=== PATIENT | female | born 1970 | race Caucasian/White ===

== ENCOUNTER → 2016-11-26 | Outpatient (CLI) | payer MEDICAID ==
--- OUTSIDE RECORDS SUMMARY | 2016-11-26 12:51 | XMS REPORT ---
Author KINA Arroyo [facility] eClinicalWorks Address Unknown Phone Unavailable Care Team Providers Care Director Of Procurement Name Role Phone KINA TREVIÑO CP Unavailable Allergies, Adverse Reactions, Alerts Substance Reaction Event Type N.K.D.A. Info Not Available Non Drug Allergy Problems Problem Type Condition Code Onset Dates Condition Status Assessment Didi albicans infection B37.9 Active Problem Anxiety disorder, unspecified F41.9 Active Assessment Well woman exam with routine gynecological exam Z01.419 Active Problem Depression F32.9 Active Problem Insomnia G47.00 Active Problem Irritable bowel syndrome with both constipation and diarrhea K58.0 Active Problem Cannabis dependence, uncomplicated F12.20 Active Problem Depressive disorder, not elsewhere classified F32.9 Active Problem GERD (gastroesophageal reflux disease) K21.9 Active Problem Substance abuse F19.10 Active Medications Medication Code System Code Instructions Start Date End Date Status Dosage Clonidine HCl [facility] [address]-49 0.1 MG Orally twice a day prn Jun 12, [address] [facility] [address] 10 MG Orally Once a day 1 tablet at bedtime as needed with food Diflucan [facility] [address]-24 100 MG Orally Three times a Week Aug 09, 2016 Aug 19, [address] [facility] [address]-62 220 MG Orally every 12 hrs 1 tablet as needed Htsxid-Skxmepekv-GRK-C-Hyal NDC 0 Orally not defined Vitamin B [address] [facility] [address] 250 MCG Orally not defined Procedures Procedure Coding System Code Date No Charge CPT-4 12846 Aug 09, 2016 [facility] NOBLL Aug 09, 2016 SPECIMEN HANDLING CPT-4 41563 Aug 09, 2016 Preventive Care Est Pt. Age 40-64 CPT-4 14936 Aug 09, 2016 PIERRE VAG, DNA, DIR PROBE CPT-4 50767 Aug 09, 2016 Vital Signs Date/Time: Aug 09, 2016 Cardiac Monitoring Heart Rate 68 bpm Weight 175.3 lbs Height 62 in BMI 32.06 Index Blood Pressure Diastolic 93 mmHg Blood Pressure Systolic 147 mmHg Results Name Result Date Reference Range Unit Abnormality Flag TRICHOMONAS (IN HOUSE) ----TRICHOMONAS negative [id number] ----Control + [id number] ----Lot # [id number] ----Exp date [id number] BACTERIAL VAGINOSIS (IN HOUSE) ----Exp date 20160809 ----Control + [id number] ----Lot # [id number] ----RESULTS negative [id number] Summary Purpose eClinicalWorks Submission
--- NOTE | 2016-11-26 15:10 | Diagnostic Imaging Report ---
INDICATION: Right-sided pelvic pain and cramping, no menstrual cycle since April 2016. COMPARISON: 12/22/2013. DISCUSSION: Transabdominal and transvaginal sonographic evaluation of the pelvis was performed. The uterus is normal in echotexture and size measuring 7.0 x 4.3 x 3.9 cm. 1.3 cm solid-appearing nodule within the uterine fundus is statistically consistent with a small fibroid, which is located entirely within the myometrium. Normal endometrial thickness measuring 0.4 cm. The right ovary was not visualized. The left ovary is mildly enlarged measuring 4.5 x 3.5 x 3.1 cm. The left ovary contains a cyst within a cyst appearance which likely represents a functional follicle though is indeterminate. Cystic structure measures 3.4 cm. Recommend 6-12 week sonographic followup. Otherwise, no abnormal adnexal mass or fluid. IMPRESSION: 1. Nonvisualization of the right ovary. 2. Simple-appearing cystic structure within the left ovary with a thin internal septation may represent a cyst within a cyst, though recommend short-term sonographic followup to document resolution and/or stability. 3. Small uterine fibroid. Dictated by: Dictated on workstation # [id number]
== END ==
LOC: RAD 12:48
PROVIDERS: ATTEND Nurse Practitioner Adult Health
DX: R10.2 Pelvic and perineal pain (principal)
CPT/HCPCS: 76830; 76856

== ENCOUNTER 2017-02-18 20:30 | Outpatient (CLI) | payer MEDICAID | END 2017-02-19 06:40 | disposition home or self-care (01) | LOC: SLEEP 20:30 | PROVIDERS: ATTEND Internal Medicine Hematology & Oncology | DX: G47.36 Sleep related hypoventilation in conditions classified elsewhere (principal); R06.83 Snoring | CPT/HCPCS: 95810 ==

== ENCOUNTER 2017-03-04 13:00 | Outpatient (RCR) | payer MEDICAID ==
[2016-12-18 16:05] LABS: BASOPHILS % (AUTO) 0 % (0-10); EOSINOPHILS % (AUTO) 0 % (0-10); LYMPHOCYTES # (AUTO) 1.8 X 10^3 (1.0-4.0); LYMPHOCYTES % (AUTO) 17 % (12-44); MEAN CORPUSCULAR HEMOGLOBIN 31 PG (25-34); MEAN CORPUSCULAR HGB CONC 34 G/DL (32-36); MEAN CORPUSCULAR VOLUME 89 FL (80-99); MEAN PLATELET VOLUME 10.7 FL (7.4-10.4); MONOCYTES # (AUTO) 0.7 X 10^3 (0.0-1.0); MONOCYTES % (AUTO) 6 % (0-12); NEUTROPHILS # (AUTO) 8.2 X 10^3 (1.8-7.8); NEUTROPHILS % (AUTO) 76 % (42-75); PLATELET COUNT 183 10^3/uL (130-400); RED BLOOD COUNT 5.59 10^6/uL (4.35-5.85); RETICULOCYTE % 1.58 % (0.50-2.40); WHITE BLOOD COUNT 10.7 10^3/uL (4.3-11.0)
[2016-12-18 16:31] LABS: ALANINE AMINOTRANSFERASE 44 U/L (0-55); ALBUMIN 4.1 G/DL (3.2-4.5); ANION GAP 12 MMOL/L (5-14); ASPARTATE AMINO TRANSFERASE 53 U/L (5-34); BILIRUBIN,TOTAL 0.7 MG/DL (0.1-1.0); BLOOD UREA NITROGEN 11 MG/DL (7-18); BUN/CREATININE RATIO 14; CARBON DIOXIDE 19 MMOL/L (21-32); CHLORIDE 107 MMOL/L (98-107); CREATININE SERUM 0.81 MG/DL (0.60-1.30); GFR ESTIMATED > 60; GLUCOSE 102 MG/DL (70-105); LACTATE DEHYDROGENASE 167 U/L (125-220); POTASSIUM 4.2 MMOL/L (3.6-5.0); SODIUM 138 MMOL/L (135-145); TOTAL PROTEIN 7.5 G/DL (6.4-8.2)
[2016-12-18 17:02] LABS: %SAT TOTAL IRON BINDING CAPIC 10 % (15-50); TIBC 307 ug/dL (280-380)
[2016-12-19 07:14] LABS: UIBC 275 ug/dL (55-450)
[2016-12-21 14:14] LABS: JAK2 MUTATION Not Detected
[2017-01-22 14:02] LABS: BASOPHILS % (AUTO) 0 % (0-10); EOSINOPHILS # (AUTO) 0.1 10^3/uL (0.0-0.3); EOSINOPHILS % (AUTO) 1 % (0-10); LYMPHOCYTES # (AUTO) 3.2 X 10^3 (1.0-4.0); LYMPHOCYTES % (AUTO) 29 % (12-44); MEAN CORPUSCULAR HEMOGLOBIN 31 PG (25-34); MEAN CORPUSCULAR HGB CONC 34 G/DL (32-36); MEAN CORPUSCULAR VOLUME 91 FL (80-99); MEAN PLATELET VOLUME 10.7 FL (7.4-10.4); MONOCYTES # (AUTO) 0.6 X 10^3 (0.0-1.0); MONOCYTES % (AUTO) 5 % (0-12); NEUTROPHILS # (AUTO) 7.3 X 10^3 (1.8-7.8); NEUTROPHILS % (AUTO) 65 % (42-75); PLATELET COUNT 179 10^3/uL (130-400); RED BLOOD COUNT 5.23 10^6/uL (4.35-5.85); RED CELL DISTRIBUTION WIDTH 14.4 % (10.0-14.5); WHITE BLOOD COUNT 11.1 10^3/uL (4.3-11.0)
[2017-03-04 14:05] LABS: BASOPHILS % (AUTO) 0 % (0-10); EOSINOPHILS # (AUTO) 0.1 10^3/uL (0.0-0.3); EOSINOPHILS % (AUTO) 1 % (0-10); LYMPHOCYTES # (AUTO) 2.8 X 10^3 (1.0-4.0); LYMPHOCYTES % (AUTO) 23 % (12-44); MEAN CORPUSCULAR HEMOGLOBIN 31 PG (25-34); MEAN CORPUSCULAR HGB CONC 34 G/DL (32-36); MEAN CORPUSCULAR VOLUME 92 FL (80-99); MEAN PLATELET VOLUME 11.7 FL (7.4-10.4); MONOCYTES # (AUTO) 0.6 X 10^3 (0.0-1.0); MONOCYTES % (AUTO) 5 % (0-12); NEUTROPHILS # (AUTO) 8.5 X 10^3 (1.8-7.8); NEUTROPHILS % (AUTO) 71 % (42-75); PLATELET COUNT 161 10^3/uL (130-400); RED BLOOD COUNT 5.18 10^6/uL (4.35-5.85); RED CELL DISTRIBUTION WIDTH 13.7 % (10.0-14.5); WHITE BLOOD COUNT 12.1 10^3/uL (4.3-11.0)
[2017-03-04 14:30] LABS: ALANINE AMINOTRANSFERASE 18 U/L (0-55); ALBUMIN 3.9 G/DL (3.2-4.5); ANION GAP 8 MMOL/L (5-14); ASPARTATE AMINO TRANSFERASE 20 U/L (5-34); BILIRUBIN,TOTAL 0.4 MG/DL (0.1-1.0); BLOOD UREA NITROGEN 12 MG/DL (7-18); BUN/CREATININE RATIO 15; CALCIUM 8.8 MG/DL (8.5-10.1); CARBON DIOXIDE 23 MMOL/L (21-32); CHLORIDE 107 MMOL/L (98-107); CREATININE SERUM 0.82 MG/DL (0.60-1.30); GFR ESTIMATED > 60; GLUCOSE 89 MG/DL (70-105); POTASSIUM 4.2 MMOL/L (3.6-5.0); SODIUM 138 MMOL/L (135-145); TOTAL PROTEIN 7.1 G/DL (6.4-8.2)
== END 2017-03-18 | disposition home or self-care (01) ==
LOC: ONC 13:00
PROVIDERS: ATTEND Internal Medicine Hematology & Oncology
DX: D75.1 Secondary polycythemia (principal); F32.9 Major depressive disorder, single episode, unspecified; K58.9 Irritable bowel syndrome, unspecified; E66.9 Obesity, unspecified; Z68.35 Body mass index [BMI] 35.0-35.9, adult
CPT/HCPCS: 36415; 80053; 81270; 82728; 83540; 83615; 85025; 85045; 99213; 99214

== ENCOUNTER 2017-09-27 15:44 | Outpatient (RCR) | payer MEDICAID ==
[2017-09-27 16:04] LABS: BASOPHILS # (AUTO) 0.1 10^3/uL (0.0-0.1); BASOPHILS % (AUTO) 0 % (0-10); EOSINOPHILS # (AUTO) 0.1 10^3/uL (0.0-0.3); EOSINOPHILS % (AUTO) 0 % (0-10); HEMATOCRIT 50 % (35-52); LYMPHOCYTES # (AUTO) 3.3 X 10^3 (1.0-4.0); LYMPHOCYTES % (AUTO) 23 % (12-44); MEAN CORPUSCULAR HEMOGLOBIN 31 PG (25-34); MEAN CORPUSCULAR HGB CONC 34 G/DL (32-36); MEAN CORPUSCULAR VOLUME 91 FL (80-99); MEAN PLATELET VOLUME 10.8 FL (7.4-10.4); MONOCYTES # (AUTO) 0.4 X 10^3 (0.0-1.0); MONOCYTES % (AUTO) 3 % (0-12); NEUTROPHILS # (AUTO) 10.2 X 10^3 (1.8-7.8); NEUTROPHILS % (AUTO) 73 % (42-75); PLATELET COUNT 169 10^3/uL (130-400); RED BLOOD COUNT 5.43 10^6/uL (4.35-5.85); RED CELL DISTRIBUTION WIDTH 13.9 % (10.0-14.5)
[2017-09-27 16:25] LABS: ALANINE AMINOTRANSFERASE 20 U/L (0-55); ALBUMIN 3.9 GM/DL (3.2-4.5); ALKALINE PHOSPHATASE 158 U/L (40-136); BILIRUBIN,TOTAL 0.3 MG/DL (0.1-1.0); BUN/CREATININE RATIO 14; CARBON DIOXIDE 23 MMOL/L (21-32); CHLORIDE 106 MMOL/L (98-107); CREATININE SERUM 0.94 MG/DL (0.60-1.30); GFR ESTIMATED > 60; GLUCOSE 123 MG/DL (70-105); POTASSIUM 4.3 MMOL/L (3.6-5.0); SODIUM 137 MMOL/L (135-145); TOTAL PROTEIN 7.9 GM/DL (6.4-8.2)
== END 2017-12-26 | disposition home or self-care (01) ==
LOC: ONC 15:44
PROVIDERS: ATTEND Internal Medicine Hematology & Oncology
DX: D75.1 Secondary polycythemia (principal); F32.9 Major depressive disorder, single episode, unspecified; K58.9 Irritable bowel syndrome, unspecified; E66.9 Obesity, unspecified; Z68.35 Body mass index [BMI] 35.0-35.9, adult
CPT/HCPCS: 36415; 80053; 85025; 99213

== ENCOUNTER → 2017-10-23 | Outpatient (CLI) | payer MEDICAID ==
--- NOTE | 2017-10-24 14:24 | Diagnostic Imaging Report ---
Bilateral screening mammogram 2D views with tomosynthesis. The current study was also evaluated with a Computer Aided Detection (CAD) system. INDICATION: Screening. No current complaints stated on the questionnaire. COMPARISON: 12/22/2013. FINDINGS: The breasts are composed of scattered fibroglandular densities. There are scattered benign-appearing calcifications. Circumscribed stable nodules are seen posteriorly and laterally in the breasts likely related to intramammary lymph nodes. Allowing for technique and positional differences, no suspicious change is seen. IMPRESSION: No significant change. ACR BI-RADS Category 2: Benign findings. Result letter will be mailed to the patient. Note: At least 10% of breast cancer is not imaged by mammography. Dictated by: Dictated on workstation # [id number]
== END ==
LOC: RAD 08:39
PROVIDERS: ATTEND Nurse Practitioner Family
DX: Z12.31 Encounter for screening mammogram for malignant neoplasm of breast (principal)
CPT/HCPCS: 77067

== ENCOUNTER 2018-09-19 12:15 | Outpatient (CLI) | payer MEDICAID ==
[~2018-09-19] VITALS: Ht 157.5 cm; Wt 108.9 kg
[2018-09-19] MEDS ORDERED: IBUP100T3 PO (12:22)
[2018-09-19] MEDS ORDERED: MELA1TAB20 PO (12:22)
[2018-09-19] MEDS ORDERED: CLON0.1T PO (12:22)
[2018-09-19] MEDS ORDERED: OMEP20TA7 PO (12:22)
== END 2018-09-19 12:37 | disposition home or self-care (01) ==
LOC: PREOP 12:15
PROVIDERS: ATTEND Surgery
DX: Z01.818 Encounter for other preprocedural examination (principal)

== ENCOUNTER 2018-09-23 12:33 | Day surgery (SDC) | payer MEDICAID ==
[~2018-09-23] VITALS: Ht 157.5 cm; Wt 108.9 kg
[~2018-09-23 12:33] MED LIST: CLON0.1T PO; IBUP100T3 PO; MELA1TAB20 PO; OMEP20TA7 PO
[2018-09-23] MEDS ORDERED: LACTATED RINGERS 1,000 ML IV ONE (12:38)
[2018-09-23] MEDS ORDERED: LACTATED RINGERS 1,000 ML IV STA (12:57)
[2018-09-23 13:00] VITALS: BP 169/98
[2018-09-23] MEDS ORDERED: HURRICAINE EXT TUBE (BENZOCAINE) XX PRN (13:00)
[2018-09-23] MEDS ORDERED: PROPOFOL INJECTION 50 ML IV ONE (13:07)
--- NOTE | 2018-09-23 13:11 | Progress Note-Pre Operative ---
Pre-Operative Progress Note H&P Reviewed The H&P was reviewed, patient examined and no changes noted. Date Seen by Provider: Sep 23, 2018 Time Seen by Provider: 13:10 Date H&P Reviewed: Sep 23, 2018 Time H&P Reviewed: 13:10 Pre-Operative Diagnosis: hematemesis, cyclic vomiting symdrome, gerd, epigastric abdominal pain ISELA LEWIS DO Sep 23, 2018 13:11
[2018-09-23] MEDS ORDERED: PANT40TA2 PO (13:52)
--- NOTE | 2018-09-23 13:54 | Discharge Inst-Simple/Standard ---
Discharge Inst-Standard Discharge Medications New, Converted or Re-Newed RX: Transmitted to Pharmacy Patient Instructions/Follow Up Plan of Care/Instructions/FU: Isabelle- [address] Card (ENT) right false cord lesion. Please schedule appointment. Activity as Tolerated: Yes Discharge Diet: Regular Diet ISELA LEWIS DO Sep 23, 2018 13:54
--- NOTE | 2018-09-23 13:56 | Progress Note-Post Operative ---
Post-Operative Progess Note Surgeon (s)/Pipe Coverer And Insulator (s) Surgeon ISELA LEWIS DO Pipe Coverer And Insulator: na Pre-Operative Diagnosis hematemesis, cyclic vomiting symdrome, gerd, epigastric abdominal pain Post-Operative Diagnosis slight gastritis, hiatal hernia, reflux esophagitis, right false cord lesion Procedure & Operative Findings Date of Procedure 09/23/18 Procedure Performed/Findings egd c biopsies Anesthesia Type per lapidarist Estimated Blood Loss Estimated blood loss (mL): scant Specimens/Packing Specimens Removed antrum, ge ISELA LEWIS DO Sep 23, 2018 13:56
[2018-09-23 14:00] VITALS: BP 112/75
--- NOTE | 2018-09-23 14:05 | Anesthesia-General Post-Op ---
MAC Patient Condition Mental Status/LOC: Same as Preop Cardiovascular: Satisfactory Nausea/Vomiting: Absent Respiratory: Satisfactory Pain: Controlled Complications: Absent Post Op Complications Complications None Follow Up Care/Instructions Patient Instructions None needed. Anesthesiology Discharge Order Discharge Order Patient is doing well, no complaints, stable vital signs, no apparent adverse anesthesia problems. MARCELLO SOLIS DO Sep 23, 2018 14:05
[2018-09-23 14:30] VITALS: BP 119/68
[2018-09-23 14:40] VITALS: BP 119/68
--- NOTE | 2018-09-23 23:36 | OPERATIVE REPORT ---
DATE OF SERVICE: 09/23/2018 PREOPERATIVE DIAGNOSES: Hematemesis, cyclic vomiting syndrome, GERD, epigastric abdominal pain. POSTOPERATIVE DIAGNOSES: Slight gastritis, hiatal hernia, reflux esophagitis, right false cord lesion. PROCEDURE: EGD with biopsy. SURGEON: Isela Walton DO ANESTHESIA: Per REAL ESTATE CLOSER. ESTIMATED BLOOD LOSS: Scant. COMPLICATIONS: None. INDICATIONS: The patient is a 48-year-old female with hematemesis, cyclic vomiting syndrome, GERD, epigastric abdominal pain. She was explained risks and benefits of procedure and wished to proceed with procedure. Consent was signed in the chart. PROCEDURE: The patient was taken to the endoscopy suite, placed in left lateral recumbent position. Timeout was performed. Scope was inserted in mouth, down the esophagus, stomach and into the duodenum without difficulty. There are no polyps, masses or ulcerations within the duodenum. The scope was slowly retracted back into the stomach where it was further insufflated. Slight gastritis appearance was present. Biopsy of the antrum was obtained. There are no polyps, mass or ulcerations. The scope was retroflexed noting a small hiatal hernia. No other pathology noted. Scope was returned to its normal position, slowly withdrawn to the distal esophagus and GE junction, some significant erythematous changes consistent with reflux esophagitis. Biopsies were obtained. Scope was then slowly retracted back to completely remove, on withdrawal the right false cord had a small lesion on it. Scope was then slowly retracted until completely removed. RECOMMENDATIONS: The patient will stop omeprazole and start Protonix 40 mg daily and follow up in the office in 2 weeks to discuss pathology results. We will also set up appointment for ENT for right false cord lesion. cc: Job ID: [id number] DocumentID: [id number] Dictated Date: 09/23/2018 13:59:01 Needle Valve Operator Date: 09/23/2018 23:36:02 Dictated By: ISELA WALTON DO
== END 2018-09-23 14:41 | disposition home or self-care (01) ==
LOC: ENDO 12:33
PROVIDERS: ATTEND Surgery
DX: K21.0 Gastro-esophageal reflux disease with esophagitis (principal); K44.9 Diaphragmatic hernia without obstruction or gangrene; K29.70 Gastritis, unspecified, without bleeding; J38.3 Other diseases of vocal cords; I10 Essential (primary) hypertension; D75.1 Secondary polycythemia; E66.01 Morbid (severe) obesity due to excess calories; Z68.41 Body mass index [BMI] 40.0-44.9, adult; Z86.19 Personal history of other infectious and parasitic diseases; Z87.891 Personal history of nicotine dependence; Z79.899 Other long term (current) drug therapy

== ENCOUNTER 2018-09-30 14:20 | Outpatient (CLI) | payer MEDICAID ==
[~2018-09-30] VITALS: Ht 157.5 cm; Wt 110.2 kg
[~2018-09-30 14:20] MED LIST changes: +PANT40TA2 PO
[2018-09-30 14:36] VITALS: BP 143/94
[2018-09-30] MEDS ORDERED: PANT40TA3 PO (14:40)
[2018-09-30] MEDS ORDERED: VARE0.5T PO (14:40)
[2018-09-30 15:05] LABS: BASOPHILS # (AUTO) 0.1 10^3/uL (0.0-0.1); BASOPHILS % (AUTO) 0 % (0-10); EOSINOPHILS # (AUTO) 0.1 10^3/uL (0.0-0.3); EOSINOPHILS % (AUTO) 1 % (0-10); HEMATOCRIT 48 % (35-52); HEMOGLOBIN 15.9 G/DL (11.5-16.0); LYMPHOCYTES # (AUTO) 3.1 X 10^3 (1.0-4.0); LYMPHOCYTES % (AUTO) 26 % (12-44); MEAN CORPUSCULAR HEMOGLOBIN 31 PG (25-34); MEAN CORPUSCULAR HGB CONC 33 G/DL (32-36); MEAN CORPUSCULAR VOLUME 92 FL (80-99); MONOCYTES # (AUTO) 0.6 X 10^3 (0.0-1.0); MONOCYTES % (AUTO) 5 % (0-12); NEUTROPHILS # (AUTO) 8.2 X 10^3 (1.8-7.8); NEUTROPHILS % (AUTO) 68 % (42-75); PLATELET COUNT 175 10^3/uL (130-400); RED BLOOD COUNT 5.15 10^6/uL (4.35-5.85); RED CELL DISTRIBUTION WIDTH 14.5 % (10.0-14.5); WHITE BLOOD COUNT 12.1 10^3/uL (4.3-11.0)
[2018-09-30 15:24] LABS: BUN/CREATININE RATIO 17; CALCIUM 9.6 MG/DL (8.5-10.1); CARBON DIOXIDE 22 MMOL/L (21-32); CHLORIDE 108 MMOL/L (98-107); CREATININE SERUM 0.84 MG/DL (0.60-1.30); GFR ESTIMATED > 60; GLUCOSE 131 MG/DL (70-105); POTASSIUM 4.4 MMOL/L (3.6-5.0); SODIUM 140 MMOL/L (135-145)
--- NOTE | 2018-09-30 18:29 | Diagnostic Imaging Report ---
INDICATION: Preop for vocal cord biopsy. TIME OF EXAM: 3:08 p.m. COMPARISON: No prior studies are available for comparison. FINDINGS: The heart size is normal. There is a calcified nodule in the left mid lung suggestive of a granuloma. Otherwise, the lungs are clear. The pulmonary vascularity is normal. No effusion or pneumothorax is seen. IMPRESSION: No acute cardiopulmonary process is detected. Dictated by: Dictated on workstation # [id number]
== END 2018-09-30 15:20 | disposition home or self-care (01) ==
LOC: PREOP 14:20
PROVIDERS: ATTEND Otolaryngology Otolaryngology/Facial Plastic Surgery
DX: Z01.810 Encounter for preprocedural cardiovascular examination (principal); Z01.811 Encounter for preprocedural respiratory examination; Z01.812 Encounter for preprocedural laboratory examination; Z11.2 Encounter for screening for other bacterial diseases; J38.3 Other diseases of vocal cords
CPT/HCPCS: 36415; 71046; 80048; 84703; 85025; 87081; 93005

== ENCOUNTER 2018-10-03 07:21 | Day surgery (SDC) | payer MEDICAID ==
[~2018-10-03] VITALS: Ht 157.5 cm; Wt 110.2 kg
[~2018-10-03 07:21] MED LIST changes: +PANT40TA3 PO; +VARE0.5T PO
[2018-10-03 07:30] VITALS: BP 129/91
[2018-10-03] MEDS ORDERED: LACTATED RINGERS 1,000 ML IV PRN (07:50)
[2018-10-03] MEDS ORDERED: MIDAZOLAM 2 MG/2 ML (VERSED) VIAL IV ONE (08:00)
[2018-10-03] MEDS ORDERED: LIDOCAINE/EPI 1%-1:100,000 (XYLOCAINE) 20ML ONE (08:43)
[2018-10-03] MEDS ORDERED: MIDAZOLAM 2 MG/2 ML (VERSED) VIAL ONE (09:01)
[2018-10-03] MEDS ORDERED: fentaNYL INJECTION 100 MCG/2 ML AMP ONE (09:01)
--- NOTE | 2018-10-03 09:36 | Progress Note-Pre Operative ---
Pre-Operative Progress Note H&P Reviewed The H&P was reviewed, patient examined and no changes noted. Date Seen by Provider: Oct 03, 2018 Time Seen by Provider: :30 Date H&P Reviewed: Oct 03, 2018 Time H&P Reviewed: :30 Pre-Operative Diagnosis: Left Laryngeal Lesion JAIMIE SANCHEZ MD Oct 03, 2018 09:36
[2018-10-03] MEDS ORDERED: morphine INJ 10 MG/ML 1ML (SYR OR VIAL) IVP ONE (10:00)
[2018-10-03] MEDS ORDERED: MEPERIDINE (DEMEROL) INJ 50 MG/ML IVP ONE (10:00)
[2018-10-03] MEDS ORDERED: ONDANSETRON 4 MG/2 ML (SDV) Z0FRAN IVP PRN (10:00)
[2018-10-03] MEDS ORDERED: ONDANSETRON 4 MG/2 ML (SDV) Z0FRAN ONE (10:13)
[2018-10-03] MEDS ORDERED: ROCURONIUM 10 MG/ML 5 ML SYRINGE IV ONE (10:13)
[2018-10-03] MEDS ORDERED: LIDOCAINE PF 2% 5 ML (XYLOCAINE) VIAL ONE (10:13)
[2018-10-03] MEDS ORDERED: SUCCINYLCHOLINE INJ 100 MG/5 ML SYR ONE (10:13)
[2018-10-03] MEDS ORDERED: LIDOCAINE JELLY 2% 6 ML SYRINGE ONE (10:13)
[2018-10-03] MEDS ORDERED: DEXAMETHASONE 10 MG/ML (DECADRON) 1 ML VIAL ONE (10:13)
[2018-10-03] MEDS ORDERED: proPOfol 200 MG/20 ML (DIPRIVAN) VIAL IV ONE (10:13)
[2018-10-03] MEDS ORDERED: SEVOFLURANE (ULTANE) 15 ML INHAL SOLN ONE (10:13)
[2018-10-03] MEDS ORDERED: GLYCOPYRROLATE 0.2 MG/ML (ROBINUL) 2 ML VIAL ONE (10:17)
[2018-10-03] MEDS ORDERED: NEOSTIGMINE 1 MG/ML 5 ML SYRINGE ONE (10:17)
--- NOTE | 2018-10-03 10:18 | Progress Note-Post Operative ---
Post-Operative Progess Note Surgeon (s)/Supervisory Aide (s) Surgeon JAIMIE SANCHEZ MD Supervisory Aide n/a Pre-Operative Diagnosis Right Laryngeal Lesion Post-Operative Diagnosis same Post-Op Procedure Note Date of Procedure: Oct 03, 2018 Name of Procedure Performed: Direct Laryngsocoy with Removal of Right Supraglottic Lesion Description & Findings Description and Findings: n/a Anesthesia Type get Estimated Blood Loss minimal Packing none. Specimen(s) collected/removed right vocal cord slesion for permanents JAIMIE SANCHEZ MD Oct 03, 2018 10:18
[2018-10-03] MEDS ORDERED: ACETAMINOPHEN 325 MG TABLET PO PRN (10:30)
[2018-10-03] MEDS ORDERED: PROMETHAZINE INJ 25 MG/ML (PHENERGAN) AMP IV PRN (10:30)
[2018-10-03] MEDS ORDERED: HYDROcodone/APAP 5 MG/325 MG (LORTAB) TAB PO PRN (10:30)
[2018-10-03 11:10] VITALS: BP 117/81
[2018-10-03] MEDS ORDERED: ACHD5005 PO (11:37)
[2018-10-03 11:40] VITALS: BP 114/70
[2018-10-03 12:07] VITALS: BP 114/70
[2018-10-03 12:10] VITALS: BP 116/81
--- NOTE | 2018-10-03 12:58 | Anesthesia-General Post-Op ---
General Patient Condition Mental Status/LOC: Same as Preop Cardiovascular: Satisfactory Nausea/Vomiting: Absent Respiratory: Satisfactory Pain: Controlled Complications: Absent Post Op Complications Complications None Follow Up Care/Instructions Patient Instructions None needed. Anesthesia/Patient Condition Patient Condition Patient is doing well, no complaints, stable vital signs, no apparent adverse anesthesia problems. No complications reported per nursing. GALA DEAN CRNA Oct 03, 2018 12:58
== END 2018-10-03 12:25 | disposition home or self-care (01) ==
LOC: SDC 07:21
PROVIDERS: ATTEND Otolaryngology Otolaryngology/Facial Plastic Surgery
DX: D14.1 Benign neoplasm of larynx (principal); I10 Essential (primary) hypertension; F17.210 Nicotine dependence, cigarettes, uncomplicated; E66.01 Morbid (severe) obesity due to excess calories; Z68.41 Body mass index [BMI] 40.0-44.9, adult; Z79.899 Other long term (current) drug therapy

== ENCOUNTER → 2018-10-29 | Outpatient (CLI) | payer MEDICAID ==
[~2018-10-29] MED LIST changes: +ACHD5005 PO
--- NOTE | 2018-10-29 18:28 | Diagnostic Imaging Report ---
EXAMINATION: Digital mammogram bilateral screening with 3D tomosynthesis and computer-aided detection (CAD) system. INDICATION: Screening. COMPARISON: This study was compared to the prior exams of 10/23/2017 and 12/22/2013. At this time, there are no current complaints. FINDINGS: The breasts are predominantly fatty. When compared to the previous study, there has been no significant change. There is no primary or secondary sign of malignancy noted. IMPRESSION: There is no evidence of malignancy. ACR BI-RADS Category 1: Negative. Result letter will be mailed to the patient. Note: At least 10% of breast cancer is not imaged by mammography. Dictated by: Dictated on workstation # [id number]
== END ==
LOC: RAD 10:57
PROVIDERS: ATTEND Nurse Practitioner Family
DX: Z12.31 Encounter for screening mammogram for malignant neoplasm of breast (principal)
CPT/HCPCS: 77067

== ENCOUNTER → 2019-12-25 | Outpatient (CLI) | payer MEDICAID ==
--- NOTE | 2019-12-25 10:39 | Diagnostic Imaging Report ---
INDICATION: Routine screening. Comparison is made with prior mammogram 12/17/2018 and 10/23/2017. 2-D and 3-D bilateral screening mammography was performed with CAD. Both breasts are primarily delusional. There are benign calcifications bilaterally. Benign nodular densities appear stable. No new mass or malignant-appearing microcalcifications are seen. Axillae are unremarkable. IMPRESSION: BI-RADS Category 2 No mammographic features suspicious for malignancy are identified. ACR BI-RADS Category 2: Benign findings. Result letter will be mailed to the patient. Note: At least 10% of breast cancer is not imaged by mammography. Dictated by: Dictated on workstation # [id number]
== END ==
LOC: RAD 09:28
PROVIDERS: ATTEND Nurse Practitioner Family
DX: Z12.31 Encounter for screening mammogram for malignant neoplasm of breast (principal)
CPT/HCPCS: 77067